=== PATIENT | male | born 1945 | race Caucasian/White ===

== ENCOUNTER 2018-01-28 06:01 | Day surgery (SDC) | payer MEDICARE, OTHER ==
[2018-01-28] MEDS ORDERED: DIPRIVAN 200 MG/20 ML IV ONE (06:02)
[2018-01-28] MEDS ORDERED: Versed 2 MG/2 ML Injection IV ONE (06:02)
[2018-01-28] MEDS ORDERED: Lactated Ringers 1,000 ML IV SCH (06:30)
[2018-01-28] MEDS ORDERED: Lactated Ringers 1,000 ML IV ONE (06:44)
[2018-01-28 08:42] VITALS: O2SAT 96
[2018-01-28 08:56] VITALS: BP 114/81; PULSE 72
--- NOTE | 2018-01-28 11:07 | OP ---
SURGERY DATE/TIME: 01/28/201820 PREOPERATIVE DIAGNOSIS: History of colon polyps and change in stool caliber. POSTOPERATIVE DIAGNOSIS: Severe sigmoid diverticulosis. PROCEDURE: Colonoscopy. SURGEON: Dr. Wolfe. ANESTHESIA: MAC. Medications given by anesthesia department. HISTORY: The patient is a 72 year-old white male patient with three previous colonoscopies. He reports he had polyps each of the last times that he had the examination performed. He reports more recently he has been having trouble with change in stool caliber becoming thinner. The patient was felt the need to have endoscopic evaluation. He was appraised of the risks of the procedure including the risk of perforation, phlebitis, untoward reaction to medication, bleeding and missed lesions. The patient verbalized his understanding and desired to have the procedure performed. DESCRIPTION OF PROCEDURE: The patient was given the medications by the anesthesia department. He had continuous pulse oximetry, ECG monitoring, intermittent blood pressure monitoring and tidal CO2 monitoring during the examination. He was placed in the left lateral decubitus position. A digital rectal examination was performed and revealed normal anal sphincter tone and no masses and normal prostate. The flexible Olympus pediatric colonoscope was used to intubate the rectum. A view of the colon was developed sequentially to the cecum. Upon insertion and withdrawal, including a retroflex view in the rectum, was noted moderate to severe sigmoid diverticulosis and poor prep otherwise no mucosal lesions were encountered. The scope was removed from the patient who tolerated the procedure well and was sent back to OP recovery in good condition.
== END 2018-01-28 09:00 | disposition home or self-care (01) ==
LOC: SDC 06:01
PROVIDERS: ATTEND Family Medicine
PROC: 0DJD8ZZ Inspection of Lower Intestinal Tract, Via Natural or Artificial Opening Endoscopic (ICD-10-PCS; principal; 2018-01-28)
DX: Z12.11 Encounter for screening for malignant neoplasm of colon (principal); Z86.010 Personal history of colon polyps; K57.30 Diverticulosis of large intestine without perforation or abscess without bleeding
CPT/HCPCS: 99100; J2250; J2704

== ENCOUNTER 2018-05-02 19:07 | Emergency (ER) | payer MEDICARE, OTHER ==
[2018-05-02 19:22] VITALS: BP 129/92; PULSE 58; O2SAT 98
--- NOTE | 2018-05-02 19:24 | ERPHSYRPT ---
- History of Present Illness Time Seen by Provider: 05/02/18 19:18 Source: patient Exam Limitations: no limitations Physician History: Pt states, he fell at home, tried to catch himself with his left hand, developed left wrist pain. He also hit his chest, but denies pain, or SOB, other complaints, he ambulates without difficulty. Occurred: hours ago (2) Method of Injury: fell Quality: constant Severity of Pain-Max: mild Severity of Pain-Current: mild Extremities Pain Location: wrist: left Modifying Factors: Improves With: movement Associated Symptoms: none Allergies/Adverse Reactions: No Known Drug Allergies Allergy (Verified 05/02/18 19:22) Home Medications: No Reportable Medications [No Reported Medications] 01/23/18 [History] - Review of Systems Constitutional: No Symptoms Musculoskeletal: Other (left wrist pain) All Other Systems: Reviewed and Negative - Past Medical History Pertinent Past Medical History: No Neurological History: No Pertinent History ENT History: No Pertinent History Cardiac History: No Pertinent History Respiratory History: No Pertinent History Endocrine Medical History: No Pertinent History Musculoskeletal History: No Pertinent History GI Medical History: Other History: No Pertinent History Psycho-Social History: No Pertinent History Male Reproductive Disorders: No Pertinent History Other Medical History: skin cancer,stool changes over last month - Past Surgical History Past Surgical History: Yes Neuro Surgical History: No Pertinent History Cardiac: No Pertinent History Respiratory: No Pertinent History Gastrointestinal: Appendectomy, Hernia Repair Genitourinary: No Pertinent History Musculoskeletal: Orthopedic Surgery Male Surgical History: No Pertinent History Other Surgical History: bone transplant - Social History Smoking Status: Never smoker Exposure to second hand smoke: No Drug Use: none - Nursing Vital Signs Nursing Vital Signs: Initial Vital Signs Temperature 98.4 F 05/02/18 19:12 Pulse Rate 58 L 05/02/18 19:12 Respiratory Rate 18 05/02/18 19:12 Blood Pressure 129/92 05/02/18 19:12 O2 Sat by Pulse Oximetry 98 05/02/18 19:12 Pain Scale Pain Intensity 3 - Physical Exam General Appearance: no apparent distress Eyes, Ears, Nose, Throat Exam: normal ENT inspection Neck Exam: normal inspection, non-tender Cardiovascular/Respiratory Exam: chest non-tender, normal breath sounds, regular rate/rhythm, heart sounds normal, no ecchymosis, no JVD, no M/R/G, no respiratory distress Abdominal Exam: non-tender, soft, No no organomegaly, No guarding Back Exam: normal inspection, No CVA tenderness Shoulder Exam: normal inspection Wrist Exam: pain, soft tissue tenderness (mild, dorsal, radial, no deformity, good distal circulation aand sensation.) Neuro/Tendon Exam: normal sensation, normal motor functions Mental Status Exam: alert, oriented x 3 Skin Exam: normal color, warm, dry SpO2 Interpretation: normal Oxygen Delivery: Room Air - Course Nursing assessment & vital signs reviewed: Yes - Radiology Exams Left Wrist X-ray Interpretation: Interpreted by me, Other (min. displaced distal radial fracture) Ordered Tests: Active Orders 24 hr Category Date Time Status Sling Application STAT Care 05/02/18 19:38 Ordered Splint STAT Care 05/02/18 19:38 Ordered WRIST (MIN 3 VIEWS) Stat Exams 05/02/18 19:18 Taken - Progress Progress: unchanged Progress Note: 05/02/18 19:40 Pt was informed about X ray result, he refused pain medicine, he states, he feels fine, OCL splint applied, and sling, discharged with instructions to rest with elevated arm, apply ice to swelling, and follow up with his Physician and Orthopedic surgeon next week! Return if severe pain, swelling or discoloration of the fingers. Counseled pt/family regarding: diagnosis, need for follow-up, rad results - Departure Time of Disposition: 19:42 Departure Disposition: Home Clinical Impression: Radius distal fracture Qualifiers: Encounter type: initial encounter Fracture type: closed Fracture morphology: unspecified fracture morphology Laterality: left Qualified Code(s): S52.502A - Unspecified fracture of the lower end of left radius, initial encounter for closed fracture Condition: Stable Critical Care Time: No Referrals: CHEYENNE BERRY [Primary Care Provider] - Instructions: Wrist Fracture (DC) Additional Instructions: Rest with elevated arm, apply ice or cold compresses to swelling, follow up with your physician and Orthopedic surgeon next week! Return if severe pain, swelling, discoloration of the fingers!
--- NOTE | 2018-05-03 09:57 | XRAY ---
Indication: Pain following fall. Comparison: None 3 views of the left wrist demonstrates nondisplaced distal radial oblique fracture with soft tissue swelling. Also mild degenerative changes of the 1st metacarpal multangular articulation. No other bony, articular, or soft tissue abnormalities.
== END 2018-05-02 20:20 | disposition home or self-care (01) ==
LOC: ED 19:07
DX: S52.502A Unspecified fracture of the lower end of left radius, initial encounter for closed fracture (principal); M25.532 Pain in left wrist; W19.XXXA Unspecified fall, initial encounter; Y92.009 Unspecified place in unspecified non-institutional (private) residence as the place of occurrence of the external cause
CPT/HCPCS: 29126; 73110; 99283